=== PATIENT | female | born 1990 | race American Indian/Alaskan Native ===

== ENCOUNTER 2016-11-19 17:01 | Emergency (ER) | payer OTHER ==
--- NOTE | 2016-11-19 17:12 | Emergency Department Report ---
Chief Complaint: Nausea/Vomiting/Diarrhea Stated Complaint: ABD PAIN/N/V Time Seen by Provider: 11/19/16 17:09 - HPI History of Present Illness: PT states she had a UTI last week. PT states she took all of her antibiotics. PT c/o N/V/D since Saturday. - ROS Review of Systems: + fever + chill + back pain - Exam Physical Exam: pt alert, answer questions appropriately PT dry heaving in triage MSE screening note: Focused history and physical exam performed. Due to findings the following was ordered: labs ED Disposition for MSE Condition: Stable
[2016-11-19 18:03] LABS: Albumin 3.4 g/dL (3.9-5); Albumin/Globulin Ratio 0.8 %; BUN/Creatinine Ratio 15.71; Blood Urea Nitrogen 11 mg/dL (7-17); Calcium 8.1 mg/dL (8.4-10.2); Carbon Dioxide 17 mmol/L (22-30); Chloride 96.5 mmol/L (98-107); Glucose 123 mg/dL (65-100); Sodium 129 mmol/L (137-145); Total Protein 7.5 g/dL (6.3-8.2)
[2016-11-19 18:19] LABS: Alanine Aminotransferase 43 units/L (7-56); Alkaline Phosphatase 47 units/L (35-129); Anion Gap 20 mmol/L; Potassium 4.4 mmol/L (3.6-5.0)
[2016-11-19 18:26] LABS: Basophils % (Auto) 0.3 % (0.0-1.8); Eosinophils % (Auto) 9.3 % (0.0-4.3); Hematocrit 38.4 % (30.3-42.9); Hemoglobin 12.7 gm/dl (10.1-14.3); Mean Corpuscular HGB Conc 33 % (30-34); Mean Corpuscular Hemoglobin 28 pg (28-32); Mean Corpuscular Volume 85 fl (79-97); Platelet Count 168 K/mm3 (140-440); Red Blood Count 4.52 M/mm3 (3.65-5.03); Red Cell Distribution Width 14.2 % (13.2-15.2); White Blood Count 4.6 K/mm3 (4.5-11.0)
[2016-11-19 18:36] LABS: Bilirubin,Urine NEG (Negative); Blood,Urine MOD (Negative); Ketones,Urine 20 mg/dL (Negative); Leukocyte Esterase,Urine TR (Negative); Mucus,Urine 2+ /HPF; Nitrite,Urine NEG (Negative)
[2016-11-19 20:26] VITALS: BP 102/67
--- NOTE | 2016-11-23 00:01 | ED Elopement Review ---
ED Pt Elopement review - Results review Lab results: Laboratory Tests 11/19/16 11/19/16 11/19/16 17:32 17:32 17:32 WBC RBC Hgb Hct MCV MCH MCHC RDW Plt Count Lymph % (Auto) [place] % (Auto) Eos % (Auto) Baso % (Auto) Lymph # [place] # Eos # Baso # Seg Neutrophils % Seg Neutrophils # Sodium 129 L Potassium 4.4 Chloride 96.5 L Carbon Dioxide 17 L Anion Gap 20 BUN 11 Creatinine 0.7 Estimated GFR > 60 BUN/Creatinine Ratio 15.71 Glucose 123 H Calcium 8.1 L Total Bilirubin 0.40 AST 57 H ALT 43 Alkaline Phosphatase 47 Total Protein 7.5 Albumin 3.4 L Albumin/Globulin Ratio 0.8 Lipase 18 HCG, Qual Negative Urine Color Urine Turbidity Urine pH Ur Specific [place] Urine Protein Urine Glucose (UA) Urine Ketones Urine Blood Urine Nitrite Urine Bilirubin Urine Urobilinogen Ur Leukocyte Esterase Urine WBC (Auto) Urine RBC (Auto) U Epithel Cells (Auto) Urine Mucus 11/19/16 11/19/16 17:36 17:39 WBC 4.6 RBC 4.52 Hgb 12.7 Hct 38.4 MCV 85 MCH 28 MCHC 33 RDW 14.2 Plt Count 168 Lymph % (Auto) 9.4 L [place] % (Auto) 8.3 H Eos % (Auto) 9.3 H Baso % (Auto) 0.3 Lymph # 0.4 L [place] # 0.4 Eos # 0.4 Baso # 0.0 Seg Neutrophils % 72.7 H Seg Neutrophils # 3.4 Sodium Potassium Chloride Carbon Dioxide Anion Gap BUN Creatinine Estimated GFR BUN/Creatinine Ratio Glucose Calcium Total Bilirubin AST ALT Alkaline Phosphatase Total Protein Albumin Albumin/Globulin Ratio Lipase HCG, Qual Urine Color Yellow Urine Turbidity Clear Urine pH 5.0 Ur Specific [place] 1.026 Urine Protein 100 mg/dl Urine Glucose (UA) Neg Urine Ketones 20 Urine Blood Mod Urine Nitrite Neg Urine Bilirubin Neg Urine Urobilinogen 2.0 Ur Leukocyte Esterase Tr Urine WBC (Auto) 8.0 H Urine RBC (Auto) 4.0 U Epithel Cells (Auto) 5.0 Urine Mucus 2+ - Call Back decision Pt Call Back Decision: Pt to F/U with PMD
== END 2016-11-19 22:25 | disposition left against medical advice (07) ==
LOC: ED 17:01
DX: R10.9 Unspecified abdominal pain (principal); Z53.21 Procedure and treatment not carried out due to patient leaving prior to being seen by health care provider
CPT/HCPCS: 36415; 80053; 81001; 83690; 84703; 85025